=== PATIENT | female | born 1955 | race Caucasian/White ===

== ENCOUNTER 2019-02-17 21:16 | Inpatient (IN) | payer MEDICAID ==
[~2019-02-17] VITALS: Ht 167.6 cm; Wt 78.9 kg
[2019-02-17 22:00] VITALS: BP 150/62
--- NOTE | 2019-02-17 22:10 | NUR ---
PT RETURNED FROM CT. LAB AT PT BEDSIDE.
--- NOTE | 2019-02-17 22:21 | NUR ---
BLOOD CULTURES OBTAINED BY LAB AT THIS TIME. ROCEPHIN INFUSION STARTED.
[2019-02-17 22:30] LABS: BASOPHILS 0.1 % (0-2); EOSINOPHILS 0.1 % (0-7); HEMATOCRIT 44.1 % (36.0-48.0); IMMATURE GRANULOCYTES 0.4 % (0-5); LYMPHOCYTES 8.9 % (15-50); MCH 28.8 pg (26.0-34.0); MCV 84.8 fL (80.0-100.0); MEAN PLATELET VOLUME 10.6 fL (7.4-10.4); MONOCYTES 10.3 % (2-11); NEUTROPHILS 80.2 % (40-80); PLATELET COUNT 144 10x3/uL (130-400); RDW 15.2 % (11.5-14.5); WBC 14.6 10x3/uL (4.8-10.8)
[2019-02-17 22:45] VITALS: BP 148/73
[2019-02-17 22:50] LABS: INR 1.5 (0.85-1.17); PROTIME 17.5 SECONDS (11.6-15.0)
[2019-02-17 22:51] LABS: APTT 95.8 SECONDS (22.8-39.4)
[2019-02-17 22:57] LABS: ALBUMIN 3.3 g/dL (3.4-5.0); ALKALINE PHOSPHATASE 135 U/L (46-116); ALT (SGPT) 58 U/L (10-68); CALC OSMOLALITY 294 mosm/kg (275-300); CALCIUM 10.2 mg/dL (8.5-10.1); CARBON DIOXIDE 23.1 mmol/L (21.0-32.0); CHLORIDE - SERUM 102 mmol/L (98-107); CREATININE - SERUM 2.6 mg/dL (0.6-1.3); GLUCOSE 85 mg/dL (74-106); POTASSIUM - SERUM 3.4 mmol/L (3.5-5.1); PROTEIN - SERUM 6.8 g/dL (6.4-8.2); SODIUM 143 mmol/L (136-145); UREA NITROGEN 43 mg/dL (7-18); eGFR NON AFRICAN AMERICAN 20 mL/min (90-120)
[2019-02-17 23:07] LABS: CKMB 103.9 U/L (0.0-3.6)
[2019-02-17 23:09] LABS: CREATINE KINASE 3850 UL (21-215)
[2019-02-17 23:11] LABS: TROPONIN-I 0.283 ng/mL (0.000-0.060)
[2019-02-17 23:14] VITALS: BP 159/43
--- NOTE | 2019-02-17 23:14 | NUR ---
CRITICAL LABS CALLED AND READ BACK. EDP DOWNEN NOTIFIED.
[2019-02-17 23:24] LABS: APPEARANCE CLOUDY (CLEAR); COLOR AMBER (YELLOW); SPECIFIC GRAVITY 1.025 (1.005-1.020)
[2019-02-17 23:25] LABS: BILIRUBIN 3+ (NEGATIVE); GLUCOSE NEGATIVE (NEGATIVE); KETONE LARGE mg/dL (NEGATIVE); NITRITE NEGATIVE (NEGATIVE); PROTEIN 1+ mg/dL (NEGATIVE)
[2019-02-17 23:32] LABS: EPITHELIAL CELLS 0-5 /hpf (0-5); RED CELLS - URINE 0-5 /hpf (0-5); WHITE CELLS - URINE 0-5 /hpf (0-5)
[2019-02-17 23:33] LABS: AMORPHOUS SEDIMENT >1+ /lpf (NONE SEEN); BACTERIA MANY /hpf (NONE SEEN); MUCUS >1+ /lpf (NONE SEEN); WAXY CAST OCC /lpf (NONE SEEN)
--- NOTE | 2019-02-17 23:48 | NUR ---
PT SLEEPING ON BED. PT WAKES TO VERBAL STIMULI. PT ABLE TO ANSWER QUESTIONS AT THIS TIME.
[2019-02-18] VITALS (7 sets, daily range): BP systolic 122–158; BP diastolic 59–86; Ht 167.6 cm; Wt 78.9 kg
--- NOTE | 2019-02-18 00:30 | NUR ---
PT WAKES TO VERBAL STIMULI. PT RESTING ON BED, NO S/S OF ACUTE DISTRESS NOTED.
--- NOTE | 2019-02-18 01:30 | NUR ---
PT ARRIVED TO THE FLOOR. EYES OPEN BUT NOT ANSWERING QUESTIONS. ASKED PT MULTIPLE TIMES WHAT HER NAME IS. PT WOULD NOT SAY. WILL CONTINUE PLAN OF CARE. CALL LIGHT IN REACH.
--- NOTE | 2019-02-18 01:33 | NUR ---
PT SLEEPING, NO S/S OF ACUTE DISTRESS NOTED AT THIS TIME.
--- NOTE | 2019-02-18 03:51 | NUR ---
I have reviewed this patient and I concur with the Shift Assessment completed by the Licensed Practical Nurse today this shift.
[2019-02-18 07:18] LABS: CALC OSMOLALITY 291 mosm/kg (275-300); CHLORIDE - SERUM 106 mmol/L (98-107); CKMB 133.2 U/L (0.0-3.6); CREATININE - SERUM 2.2 mg/dL (0.6-1.3); GLUCOSE 78 mg/dL (74-106); MAGNESIUM - SERUM 1.7 mg/dL (1.8-2.4); POTASSIUM - SERUM 3.6 mmol/L (3.5-5.1); SODIUM 142 mmol/L (136-145); UREA NITROGEN 40 mg/dL (7-18); eGFR NON AFRICAN AMERICAN 24 mL/min (90-120)
[2019-02-18] MEDS ORDERED: MOBIC7.5 MG PO (08:02)
[2019-02-18] MEDS ORDERED: MECLIZINE HCL25 MG PO (08:03)
[2019-02-18 08:11] LABS: CARBON DIOXIDE 17.2 mmol/L (21.0-32.0); CREATINE KINASE 4925 UL (21-215); TROPONIN-I 0.301 ng/mL (0.000-0.060)
[2019-02-18 08:48] LABS: BASOPHILS 0.1 % (0-2); EOSINOPHILS 0.1 % (0-7); HEMATOCRIT 40.3 % (36.0-48.0); HEMOGLOBIN 13.4 g/dL (12-16); IMMATURE GRANULOCYTES 0.4 % (0-5); LYMPHOCYTES 8.9 % (15-50); MCH 28.7 pg (26.0-34.0); MCHC 33.3 g/dL (31.0-37.0); MCV 86.3 fL (80.0-100.0); MEAN PLATELET VOLUME 10.6 fL (7.4-10.4); MONOCYTES 9.7 % (2-11); NEUTROPHILS 80.8 % (40-80); PLATELET COUNT 106 10x3/uL (130-400); RBC 4.67 10x6/uL (4.00-5.40); RDW 15.5 % (11.5-14.5); WBC 10.1 10x3/uL (4.8-10.8)
--- NOTE | 2019-02-18 16:14 | NUR ---
NS @200CC/ HR TO PATENT R AC IV. PT RESTING WITH EYES CLOSED. RESP EVEN AND UNLAORED.
--- NOTE | 2019-02-18 16:27 | NUR ---
I have reviewed this patient and I concur with the Shift Assessment completed by the Licensed Practical Nurse today this shift.
--- NOTE | 2019-02-18 22:33 | NUR ---
REC'D AT [facility]. OF SHIFT EYES OPEN NONVERBAL WHEN NAME CALLED. WILL CONTINUE TO MONITOR AND FOLLOW CURRENT PLAN OF CARE.
[2019-02-19] VITALS (7 sets, daily range): BP systolic 111–178; BP diastolic 60–91
--- NOTE | 2019-02-19 03:54 | NUR ---
I have reviewed this patient and I concur with the Shift Assessment completed by the Licensed Practical Nurse today this shift.
--- NOTE | 2019-02-19 04:34 | NUR ---
I have reviewed this patient and I concur with the Shift Assessment completed by the Licensed Practical Nurse today this shift.
[2019-02-19 06:34] LABS: BASOPHILS 0.2 % (0-2); EOSINOPHILS 0.3 % (0-7); HEMATOCRIT 35.5 % (36.0-48.0); HEMOGLOBIN 11.9 g/dL (12-16); IMMATURE GRANULOCYTES 0.3 % (0-5); LYMPHOCYTES 14.8 % (15-50); MCH 28.9 pg (26.0-34.0); MCHC 33.5 g/dL (31.0-37.0); MCV 86.2 fL (80.0-100.0); MEAN PLATELET VOLUME 9.8 fL (7.4-10.4); MONOCYTES 9.3 % (2-11); NEUTROPHILS 75.1 % (40-80); RBC 4.12 10x6/uL (4.00-5.40); RDW 15.5 % (11.5-14.5)
[2019-02-19 06:35] LABS: PLATELET COUNT 83 10x3/uL (130-400); WBC 6.3 10x3/uL (4.8-10.8)
[2019-02-19 07:16] LABS: ALBUMIN 2.5 g/dL (3.4-5.0); ALKALINE PHOSPHATASE 89 U/L (46-116); ALT (SGPT) 60 U/L (10-68); BILIRUBIN - TOTAL 0.91 mg/dL (0.2-1.3); CALC OSMOLALITY 298 mosm/kg (275-300); CALCIUM 9.3 mg/dL (8.5-10.1); CARBON DIOXIDE 18.6 mmol/L (21.0-32.0); CHLORIDE - SERUM 112 mmol/L (98-107); CKMB 19.9 U/L (0.0-3.6); GLUCOSE 88 mg/dL (74-106); MAGNESIUM - SERUM 1.8 mg/dL (1.8-2.4); POTASSIUM - SERUM 3.1 mmol/L (3.5-5.1); PROTEIN - SERUM 5.5 g/dL (6.4-8.2); SODIUM 147 mmol/L (136-145); UREA NITROGEN 35 mg/dL (7-18)
[2019-02-19 07:18] LABS: CREATININE - SERUM 1.6 mg/dL (0.6-1.3); TROPONIN-I 0.202 ng/mL (0.000-0.060); eGFR NON AFRICAN AMERICAN 35 mL/min (90-120)
[2019-02-19 08:46] LABS: PLATELET ESTIMATE DECREASED
[2019-02-19 08:47] LABS: ANISOCYTOSIS OCC
--- NOTE | 2019-02-19 09:58 | NUR ---
PT LYING IN BED WILL NOT OPEN HER EYES, PT RESPONDS TO PAIN, ADMINISTERED LOVENOX SHOT AND PT SQUIRMED, OT ASSISTED WITH ORAL CARE AND PT WAS POCKETING FOOD AND MOANED WHEN THEY WERE REMOVING FOOD FROM CHEEKS. PT K+ IS 3.1 ADMINISTERED K+ PER EP. BED IN LOW POSITION. CL IN REACH CONTINUE WITH PLAN OF CARE
--- NOTE | 2019-02-19 10:53 | NUR ---
STARTED PT SECOND BAG OF POTASSIUM PT IS MOANING BUT UNABLE TO GET PT TO COMMUNICATE. PT IS DRY CONTINUE WITH PLAN OF CARE
--- NOTE | 2019-02-19 11:38 | NUR ---
PT BROTHER CALLED AND STATED UP TO ABOUT A MONTH AGO PT WAS USING SMOKELESS TOBACCO AND STATED HER MOUTH WAS HURTING, IN ROOM WITH OT BRETT AND ASSISTED IN CLEANING PT MOUTH OUT WHICH CONTAINED FOOD STILL. PT INSIDE OF MOUTH LOOKS RED BLOOD PRESENT IN MOUTH. ASSISTED WITH PERSONAL CARE, CONTINUE WITH PLAN OF CARE
--- NOTE | 2019-02-19 14:05 | NUR ---
PT IS STILL NONVERBAL AND DID NOT RESPOND MUCH BUT GRAONING WHEN I& O CATH PERFORMED, WENT AHEAD AND PLACED DIANE DUE TO PT IMMOBILE CONTINUE WITH PLAN OF CARE
[2019-02-19 14:27] LABS: UDS - AMPHET NEGATIVE QUAL (NEGATIVE); UDS - BARB NEGATIVE QUAL (NEGATIVE); UDS - BENZO NEGATIVE QUAL (NEGATIVE); UDS - COCAINE NEGATIVE QUAL (NEGATIVE); UDS - OPIATE NEGATIVE QUAL (NEGATIVE); UDS - PCP NEGATIVE QUAL (NEGATIVE); UDS - THC NEGATIVE QUAL (NEGATIVE)
--- NOTE | 2019-02-19 14:41 | NUR ---
I have reviewed this patient and I concur with the Shift Assessment completed by the Licensed Practical Nurse today this shift.
--- NOTE | 2019-02-19 15:50 | NUR ---
OT NOTE: PT REQUIRED EXTENSIVE CUES FOR SIMPLE BED MOB TASKS WITH VANDANA Tejeda. PT COMPLETED HYGIENE TASKS WITH VANDANA Tejeda. THANK YOU, CONSUELO ARCOS
--- NOTE | 2019-02-19 17:10 | NUR ---
PT BP AND HR A LITTLE ELEVATED PER LABEL FUSER TENDER UNABLE TO RUN STRIP ON PT WILL READJUST LEADS FOR A BETTER READING. PER PATTERN CHECKER PT WAS AT A 125 DURING V/S
--- NOTE | 2019-02-19 17:21 | NUR ---
READJUSTED PT LEADS AND PT IS RUNNING [address] CONTINUE WITH PLAN OF CARE. PT RT ARM HAS CONTINUOUS TREMBLING WELL
--- NOTE | 2019-02-20 03:28 | NUR ---
1930] REC'D IN BED DR. MONTGOMERY HERE TALKED WITH BROTHER ON PHONE REGUARDING DOING SPINAL SAMANTA IN AM. BROTHER IN AGREES WITH HAVING PROCEDURE DONE PHONE CONSENT GIVEN. WILL CONTINUE TO MONITOR FOR ANY CHGES. AND FOLLOW CURRENT PLAN OF CARE.
[2019-02-20 05:02] VITALS: BP 144/69
[2019-02-20 05:32] LABS: BASOPHILS 0.3 % (0-2); EOSINOPHILS 0.3 % (0-7); HEMATOCRIT 34.8 % (36.0-48.0); HEMOGLOBIN 11.7 g/dL (12-16); IMMATURE GRANULOCYTES 0.5 % (0-5); LYMPHOCYTES 15.7 % (15-50); MCH 28.3 pg (26.0-34.0); MCHC 33.6 g/dL (31.0-37.0); MCV 84.3 fL (80.0-100.0); MEAN PLATELET VOLUME 9.8 fL (7.4-10.4); NEUTROPHILS 73.2 % (40-80); RBC 4.13 10x6/uL (4.00-5.40); RDW 15.3 % (11.5-14.5); WBC 7.4 10x3/uL (4.8-10.8)
[2019-02-20 05:46] LABS: PLATELET COUNT 101 10x3/uL (130-400)
[2019-02-20 06:08] LABS: ALBUMIN 2.3 g/dL (3.4-5.0); ALKALINE PHOSPHATASE 90 U/L (46-116); ALT (SGPT) 48 U/L (10-68); CALCIUM 9.1 mg/dL (8.5-10.1); CHLORIDE - SERUM 109 mmol/L (98-107); CKMB 5.1 U/L (0.0-3.6); CREATININE - SERUM 1.5 mg/dL (0.6-1.3); GLUCOSE 104 mg/dL (74-106); MAGNESIUM - SERUM 1.4 mg/dL (1.8-2.4); POTASSIUM - SERUM 3.2 mmol/L (3.5-5.1); PROTEIN - SERUM 5.5 g/dL (6.4-8.2); SODIUM 146 mmol/L (136-145); eGFR NON AFRICAN AMERICAN 37 mL/min (90-120)
[2019-02-20 06:09] LABS: CALC OSMOLALITY 295 mosm/kg (275-300); CARBON DIOXIDE 24.4 mmol/L (21.0-32.0); TROPONIN-I 0.191 ng/mL (0.000-0.060); UREA NITROGEN 26 mg/dL (7-18)
--- NOTE | 2019-02-20 07:00 | NUR ---
PATIENT RECIEVED FROM PREVIOUS SHIFT IN BED, NPO FOR LUMBAR PUNCTURE LATER TODAY. PATIENT NON-VERBAL WITH INVOLUNTARY MOVEMENT OF BILAT UPPER EXTREMITIES NOTED. REPORTED THESE CHANGES SINCE YESTERDAY EVENING. SR UP X2 FOR PATIENT SAFETY, CL IN REACH
--- NOTE | 2019-02-20 07:27 | NUR ---
I have reviewed this patient and I concur with the Shift Assessment completed by the Licensed Practical Nurse today this shift.
[2019-02-20 09:30] VITALS: BP 150/126
[2019-02-20 12:29] LABS: GLUCOSE - CSF 58 MG/DL (40-75); PROTEIN - CSF 50 MG/DL (12-60)
[2019-02-20 13:01] LABS: APPEARANCE - CSF COLORLESS; RBC - CSF 80 cmm (0-0)
--- NOTE | 2019-02-20 13:08 | NUR ---
NUTRITION F/U PT CURRENTLY OOR. SPEECH THERAPY NOTE REVIEWED. RECOMMEND STARTING TUBE FEEDS 1)OSMOLITE 1.0 CHAPITO @ 20 CC/HR 2)INCREASE 10 CC/HR Q 8 HOURS TOLERATED TO GOAL RATE 60 CC/HR 3)50 CC H2O FLUSH Q [address] FOLLOWING
[2019-02-20 14:07] LABS: LYMPH - CSF 92 % (40-80); MONO - CSF 4 % (15-45); NEUT - CSF 4 % (0-6)
[2019-02-20] MEDS ORDERED: ROCEPHIN 2 GM/D5W 50 IV (14:35)
[2019-02-20] MEDS ORDERED: HYDRALAZINE20 MG/ML IV (14:35)
[2019-02-20] MEDS ORDERED: Keppra Premix IV (14:36)
[2019-02-20 15:00] LABS: APPEARANCE CLEAR (CLEAR); BILIRUBIN NEGATIVE (NEGATIVE); COLOR DK YELLOW (YELLOW); EPITHELIAL CELLS 0-5 /hpf (0-5); GLUCOSE NEGATIVE (NEGATIVE); KETONE MODERATE mg/dL (NEGATIVE); NITRITE NEGATIVE (NEGATIVE); PROTEIN 1+ mg/dL (NEGATIVE); SPECIFIC GRAVITY 1.015 (1.005-1.020); UROBILINOGEN NORMAL (NORMAL); WHITE CELLS - URINE 0-5 /hpf (0-5)
[2019-02-20 15:01] LABS: BACTERIA FEW /hpf (NONE SEEN); MUCUS <1+ /lpf (NONE SEEN)
--- NOTE | 2019-02-20 15:13 | MORECARE ---
CASE MANAGEMENT DISCHARGE SUMMARY PATIENT: WILFRIDO ROPER UNIT: [id number] ADM DATE: 02/18/19 AGE: 63 : 59 SEX: F ROOM/BED: D.2234 AUTHOR: KATIE DE LA TORRE PHYSICIAN: REFERRING PHYSICIAN: RAJANI MONTGOMERY MD DATE OF SERVICE: 02/20/19 Discharge Plan Patient Name: WILFRIDO ROPER Facility: [facility]:[place] : 1955 Planned Disposition: Anticipated Discharge Date: Discharge Date: Expected LOS: Initial Reviewer: [email or web address] Initial Review Date: 02/20/2019 Generated: 02/20/19 4:13 pm Patient Name: WILFRIDO ROPER Page [id number] at 1513 All edits/amendments must be made on the electronic document DICTATION DATE: 02/20/191511 LIQUOR GRINDER MILL OPERATOR: CJ 02/20/191511 RPT#: [id number] DC DATE: STATUS: ADM IN [facility] [address] [place] [address] END OF REPORT
--- NOTE | 2019-02-20 15:23 | MORECARE ---
CASE MANAGEMENT DISCHARGE SUMMARY PATIENT: WILFRIDO ROPER UNIT: [id number] ADM DATE: 02/18/19 AGE: 63 : 59 SEX: F ROOM/BED: D.2234 AUTHOR: KATIE DE LA TORRE PHYSICIAN: REFERRING PHYSICIAN: RAJANI REYES MD DATE OF SERVICE: 02/20/19 Discharge Plan Patient Name: WILFRIDO ROPER Facility: [facility]:[place] : 1955 Planned Disposition: Anticipated Discharge Date: Discharge Date: Expected LOS: Initial Reviewer: [email or web address] Initial Review Date: 02/20/2019 Generated: 02/20/19 4:23 pm Comments DCP- Discharge Planning Updated by [email or web address]: Shira Cunningham on 02/20/19 2:[address] Patient Name: WILFRIDO ROPER Admission Status: ER Accout number: [id number] Admission Date: 02-18-2019 : 1955 Admission Diagnosis: Attending: RAJANI REYES Current LOS: 2 Anticipated DC Date: Planned Disposition: Primary Insurance: MEDICAID [place] Discharge Planning Comments: CM received notice that Dr. Reyes has talked to a Dr. Ponce at [facility] in [place] and would like the patient transferred there. I called the transfer team and spoke to Rafal and clinical faxed. She has been accepted by a Dr. Harley and will go to room 4120. I spoke with the patient's brother and informed him that she is being transferred and he agrees to have her transferred via ambulance. I spoke with the panel flow machine operator and primary nurse (Jessi). The ambulance ETA is in 30 minutes. I informed the brother of ETA. CM will continue to follow and assist with discharge planning/needs. Administrative Personal Assistant: Shira Cunningham Last DP export: 02/20/19 2:13 pm Patient Name: WILFRIDO ROPER Page [id number] at 1523 All edits/amendments must be made on the electronic document DICTATION DATE: 02/20/19 152 ASSEMBLER AIRCRAFT POWER PLANT: CJ 02/20/19 152 RPT#: [id number] DC DATE: STATUS: ADM IN [facility] [address] [place] [address] END OF REPORT
--- NOTE | 2019-02-20 15:27 | NUR ---
REPORT CALLED TO ALLYSSA CADE RN. PATIENT BEING TRANSFERED TO [facility] IN [place]
--- NOTE | 2019-02-20 16:12 | NUR ---
PATIENT TRANSFERED BY AMBULANCE TO [facility]
[2019-02-21 13:12] LABS: FUNGUS STAIN Final report (())
--- NOTE | 2019-02-21 16:11 | MORECARE ---
CASE MANAGEMENT DISCHARGE SUMMARY PATIENT: WILFRIDO ROPER UNIT: [id number] ADM DATE: 02/18/19 AGE: 63 : 59 SEX: F ROOM/BED: D.2234 AUTHOR: KATIE DE LA TORRE PHYSICIAN: REFERRING PHYSICIAN: RAJNAI REYES MD DATE OF SERVICE: 02/21/19 Discharge Plan Patient Name: WILFRIDO ROPER Facility: [facility]:[place] : 1955 Planned Disposition: Anticipated Discharge Date: Discharge Date: 02/20/2019 Expected LOS: 0 Initial Reviewer: [email or web address] Initial Review Date: 02/20/2019 Generated: 02/21/19 5:11 pm Comments DCP- Discharge Planning Updated by [email or web address]: Shira Cunningham on 02/20/19 2:[address] Patient Name: WILFRIDO ROPER Admission Status: ER Accout number: [id number] Admission Date: 02-18-2019 : 1955 Admission Diagnosis: Attending: RAJANI REYES Current LOS: 2 Anticipated DC Date: Planned Disposition: Primary Insurance: MEDICAID [place] Discharge Planning Comments: CM received notice that Dr. Reyes has talked to a Dr. Ponce at [facility] in [place] and would like the patient transferred there. I called the transfer team and spoke to Rafal and clinical faxed. She has been accepted by a Dr. Harley and will go to room 4120. I spoke with the patient's brother and informed him that she is being transferred and he agrees to have her transferred via ambulance. I spoke with the sports medicine coordinator and primary nurse (Jessi). The ambulance ETA is in 30 minutes. I informed the brother of ETA. CM will continue to follow and assist with discharge planning/needs. Instructor Kindergarten: Shira Cunningham Last DP export: 02/20/19 2:23 pm Patient Name: WILFRIDO ROPER Page [id number] at 1611 All edits/amendments must be made on the electronic document DICTATION DATE: 02/21/19 1611 CUT OUT STITCHER: CJ 02/21/19 1611 RPT#: [id number] DC DATE:02/20/19 STATUS: DIS IN [facility] [address] [place] [address] END OF REPORT
--- NOTE | 2019-02-21 16:41 | CN ---
PATIENT NAME:WILFRIDO VERA MEDICAL RECORD: [id number] : 59 LOCATION:D.MS [id number] ADMIT DATE: 02/18/19 ACCOUNT: [id number] CONSULTING PHYSICIAN: KALINA SHELL MD REFERRING PHYSICIAN: RAJANI MONTGOMERY MD DATE OF CONSULTATION: 02/18/2019 CARDIOLOGY CONSULTATION DIAGNOSES: 1. Elevated troponin. 2. Renal insufficiency, acute. 3. Dehydration. 4. Confusion. 5. Abnormal ECG. HISTORY OF PRESENT ILLNESS: Mrs. Vera was transferred from [facility]. She presented there it appears with generalized weakness and confusion. She is still a very poor historian here. She does deny any chest pain or chest discomfort. Troponin is elevated, so was her CK as well as her BUN and creatinine. She is being hydrated. Supposedly her mentation is improving. She does not appear to have any cardiac history. Her EKG is with gross ST-T abnormalities anteriorly as well as inferiorly, but no definite acute injury pattern. PHYSICAL EXAMINATION: GENERAL APPEARANCE: Well-nourished, well-developed, appears stated age. Level of distress, comfortable. PSYCHIATRIC: Mental status, alert, normal affect. Orientation, oriented to time, place and person. EYES: Lids and conjunctiva, noninjected. No discharge, no pallor. ENT: Lips, teeth, gums, normal dentition. Oropharynx, no cyanosis, no pallor. NECK: Carotid arteries, bilateral normal upstroke, no bruits, no thrills. JUGULAR VEINS: No jugular venous pressure or distention. CERVICAL LYMPH NODES: Nontender, nonenlarged. THYROID: Not enlarged. Nontender. No nodules. LUNGS: Respiratory effort, unlabored. CHEST: Normal curvature. No thoracic deformity. No chest wall tenderness. Percussion, resonant. Auscultation, clear. No wheezes, no rales, no rhonchi. CARDIOVASCULAR: Precordial exam, nondisplaced. No heaves or pericardial thrills. Rate and rhythm, regular. Heart sounds, normal S1, normal S2. No S3, no gallop, no rub. Systolic murmur, not heard. Diastolic murmur, not heard. EXTREMITIES: No cyanosis, no edema. Peripheral pulses, full and equal in all extremities, except as noted. No bruits appreciated. ABDOMEN: Soft, nondistended. Normal aorta. No bruit. Nontender. No masses. Liver, nontender, no hepatomegaly. Spleen, nontender, no splenomegaly. MUSCULOSKELETAL: No joint tenderness. No joint swelling. No erythema. NEUROLOGICAL: Normal gait, normal strength, normal tone. SKIN: Warm and dry. OVERALL IMPRESSION: Elevated troponin and abnormal ECG, but no chest pain, very poor historian and acute confusion as well. We will get an echocardiogram to assess LV function as well as wall motion abnormalities. Further care depends upon further troponin, renal function, and echocardiogram findings. CONSULT REPORT [id number] WILFRIDO VERA TRANSINT:[id number] Voice Confirmation ID: [id number] DOCUMENT ID: [id number] KALINA SHELL MD at 1641 CC: [id number] DICTATION DATE: 02/18/19 1142 SHOE SPRAYER: 02/18/19 1225 DIS IN 02/20/19 [facility] [address] [place] [address]
--- NOTE | 2019-02-21 16:42 | EC ---
PATIENT:WILFRIDO ROPER DATE OF SERVICE: 02/18/19 SEX: F MEDICAL RECORD: [id number] DATE OF : [birth year] LOCATION:D.MS [id number] AGE OF PATIENT: 63 ADMISSION DATE: 02/18/19 REFERRING PHYSICIAN: INTERPRETING PHYSICIAN: KALINA DURHAM MD ECHOCARDIOGRAM REPORT ECHO CHARGES 4 ECHO COMPLETE Date: 02/18/19 CLINICAL DIAGNOSIS: ELEVATED TROPONIN ECHOCARDIOGRAPHIC MEASUREMENTS (adult normal given) AC root (d.<3.7cm) 2.6 cm LV Septum d (<1.2 cm> 1.2 cm Valve Excursion 1.5 cm LV Septum (systole) 1.5 cm Left Atria (s.<4.0cm> 2.5 cm LVPW d(<1.2cm) 1.2 cm RV (d.<2.3cm) 1.7 cm LVPW (sytole) 2.1 cm LV diastole(<5.6CM) 3.6 cm MV E-F(>70mm/sec) cm LV systole 1.7 cm LVOT Diameter 1.6 cm MV exc.(>10mm) cm Est.ejection fraction (50-75%) % DOPPLER: LVIT cm/sec A 95 cm/sec E 52 cm/sec LA cm/sec RVSP 17.1 mmHg LVOT 145 cm/sec AOP1/2T m/s Asc. Ao 176 cm/sec RVOT 107 cm/sec RA cm/sec PA 129 cm/sec AV Gradient Peak 12.4 mmHg AV Mean 8.5 mmHg AV Area 1.4 cm MV Gradient Peak 7.9 mmHg MV Mean 3.2 mmHg MV Area cm COMMENTS: Booking Prizer: Arielle SCOTT Manager Membership: 1 Dr. [place] TAPE# PACS Pericardial Effusion N DATE OF SERVICE: 02/18/2019 ECHOCARDIOGRAM DATE OF SERVICE: 02/18/2019 FINDINGS: 1. Left ventricular chamber size is within normal limits. Left ventricular systolic function is lower limits of normal to mildly depressed at 45% to 50%. 2. Left atrium, right atrium and right ventricular chamber sizes are within ECHOCARDIOGRAM REPORT [id number] WILFRIDO ROPER normal limits. 3. Valvular structures have normal structure and motion. 4. Doppler interrogation reveals no significant valvular insufficiency or stenosis. Pulmonary systolic pressure is normal estimated at 17 mmHg. 5. No evidence of pericardial effusion or left ventricular thrombus. TRANSINT:[id number] Voice Confirmation ID: [id number] DOCUMENT ID: [id number] KALINA DURHAM MD at 1642 CC: [id number] DICTATION DATE: 02/19/19 1224 CAN TESTER: 02/19/19 1313 DIS IN 02/20/19 [facility] [address] [place] [id number]
[2019-02-23 12:07] LABS: HSV 1 DNA (PCR) Negative (Negative); HSV 2 DNA (PCR) Negative (Negative)
== END 2019-02-20 16:13 | disposition short-term general hospital (02) | DRG 70 ==
LOC: D.ER 21:16 → D.MS 02-18 00:11
PROVIDERS: Family Medicine; ADMIT Internal Medicine Nephrology; ATTEND Internal Medicine Nephrology
PROC: 009U3ZZ Drainage of Spinal Canal, Percutaneous Approach (ICD-10-PCS; principal; 2019-02-20)
DX: G93.41 Metabolic encephalopathy (principal); R40.2124 Coma scale, eyes open, to pain, 24 hours or more after hospital admission; R40.2344 Coma scale, best motor response, flexion withdrawal, 24 hours or more after hospital admission; R40.2214 Coma scale, best verbal response, none, 24 hours or more after hospital admission; N17.9 Acute kidney failure, unspecified; N39.0 Urinary tract infection, site not specified; M62.82 Rhabdomyolysis; I50.20 Unspecified systolic (congestive) heart failure; E86.0 Dehydration; R94.31 Abnormal electrocardiogram [ECG] [EKG]; E83.42 Hypomagnesemia; R79.89 Other specified abnormal findings of blood chemistry; I11.0 Hypertensive heart disease with heart failure; R00.0 Tachycardia, unspecified